=== PATIENT | female | born 1960 | race African-American/Black ===

== ENCOUNTER → 2017-07-02 | Outpatient (CLI) | payer OTHER | LOC: RAD 03:49 | DX: Z12.31 Encounter for screening mammogram for malignant neoplasm of breast (principal) ==

== ENCOUNTER → 2017-07-16 | Outpatient (CLI) | payer OTHER | LOC: RAD 09:50 | DX: M54.5 Low back pain (principal) ==

== ENCOUNTER 2018-09-28 17:57 | Inpatient (IN) | payer OTHER ==
[~2018-09-28] VITALS: Ht 170.2 cm; Wt 80.5 kg
[2018-09-28 18:30] VITALS: BP 151/87
[2018-09-28] MEDS ORDERED: METFORMIN HCL500 MG PO (20:02)
[2018-09-28] MEDS ORDERED: SYNTHROID100 MC1 (20:03)
[2018-09-29 05:00] VITALS: BP 154/70
[2018-09-29 06:20] LABS: CALCIUM 8.7 mg/dL (8.5-10.1); CREATININE 0.7 mg/dL (0.6-1.0); POTASSIUM 3.8 mmol/L (3.5-5.1)
--- NOTE | 2018-09-29 07:48 | NUR ---
PT ALERT AND ORIENTED. ADMITTED INTO ROOM 427 AT AROUND 1800. PT GIVEN PAIN MEDS FOR THE R BIG TOE PAIN. AFEBRILE. ABTS STARTED.NO FURTHER CONCERNS.
[2018-09-29 07:58] VITALS: BP 139/79
--- NOTE | 2018-09-29 13:57 | NUR ---
ASSESSMENT-PT LIVES IN A DUPLEX WITH HER DTR AND GRANDDTR. PT WALKS ON HER OWN AND DOES HER OWN ADLS. SHE HAS NOT HAD ANY HH SERVICES AND USES NO DME. THEY SHARE THE COOKING, CLEANING AND LAUNDRY. PT VOICES NO DC NEEDS AT THIS TIME. FOLLOWING TO ASSIST WITH DC PLANNING.
[2018-09-29 16:18] LABS: ABSOLUTE NEUTROPHILS 5.8 thou/uL (1.4-8.2); BASOPHILS 0.8 % (0.0-2.0); HEMATOCRIT 42.2 % (37.0-47.0); HEMOGLOBIN 14.1 gm/dL (12.0-15.0); LYMPHOCYTES 26.5 % (24.0-44.0); MCH 29.3 pg (26.0-34.0); MCHC 33.4 g/dL (28.0-37.0); MCV 87.5 fL (80.0-100.0); MONOCYTES 8.3 % (1.0-8.0); PLATELET COUNT 288 thou/uL (150-400); POLYS 63.4 % (36.0-66.0); RBC 4.82 mil/uL (4.20-5.00); RDW 14.5 % (10.5-14.5); WBC 9.2 thou/uL (4.0-11.0)
[2018-09-29 17:09] VITALS: BP 130/70
[2018-09-29 19:29] VITALS: BP 141/81
[2018-09-29 23:11] LABS: GLYCOHEMOGLOBIN (HGB A1C) 11.7 % (4.8-5.6)
[2018-09-30 04:31] VITALS: BP 125/60
--- NOTE | 2018-09-30 07:55 | HC ---
[facility] [place] [address] CONSULTATION Name: FRANKLIN GUILLEN Chana Room #: 427-P ADM IN M.R.#: [id number] Admission: 09/28/18 ������������������ Attend Phys: Farhat Fung MD Discharge: ������������������ Date of : 58 Report #: [id number] THIS REPORT FOR: //name// CC: Farhat Fung DATE OF SERVICE: 09/29/2018 HISTORY OF PRESENT ILLNESS: This is a 58-year-old diabetic who was admitted yesterday evening, ThursdaySeptember 28, from our podiatry office with concerns of right big toe cellulitis with ischeic changes and likely osteomyelitis. She states it has been going on for about a month, but over the last week, it has gotten worse. It hurts with any pressure to the toe. She has been applying a topical antibiotic cream. She denies any fever, chills, nausea, or vomiting. She had direct admission for further workup with Infectious Disease consult with IV antibiotics, further vascular studies, and further imaging of right big toe. On physical exam, nonpalpable pedal pulses to right foot, difficult to find pulses with Doppler. CFT is absent to distal aspect of right hallux with signs of ischemia and dusky appearance. The right hallux nail bed with mixture of fibrotic and necrotic tissue present. There is darkened skin to proximal aspect of nail extending back to dorsal mid proximal phalanx aspect. No direct probing to bone, no abscess or fluctuance. No active drainage or pus. No malodor. Edema extends to the base of the right hallux towards first MPJ. There is decrease in sensation to bilateral feet. No obvious gross pedal deformities. No pain in the calf with compression. Significant pain with any pressure to right hallux. ASSESSMENT: A 58-year-old diabetic female with right hallux cellulitis, peripheral vascular disease, + tobacco hx, with dry gangrenous changes, and likely osteomyelitis. PLAN: Direct admission yesterday evening for further workup. At this time, recommend nonadherent dry dressings to right hallux daily. Infectious Disease, Dr. Coleman is on consult. We will await further imaging with MRI and arterial duplex. Recommend rest and elevation, offloading the right hallux. We will order a surgical shoe at the bedside also with weight bearing only to bathroom. [address] [address] CONSULTATION Name: GUILLENFRANKLIN Room #: 427-P ADM IN M.R.#: [id number] Admission: 09/28/18 ������������������ Attend Phys: Farhat Fung MD Discharge: ������������������ Date of : 58 Report #: [id number] Discussed with pt better glucose control and tobacco cessation. Reviewed with her that she could likely need amputation, but unsure at what level she will heal with PVD and pending vasc studies. Also encouraged optimizing nutrition status. Appreciate this consult and we will closely follow. Katarzyna Brandon ��������������������������������������������� <ELECTRONICALLY SIGNED> ���������������������������������������� By: Katarzyna Brandon, PHAN ��������������������������������������������� 09/30/18 0755 0845 1223 Katarzyna Brandon DPM /nt
[2018-09-30 08:09] VITALS: BP 139/74
--- NOTE | 2018-09-30 08:10 | NUR ---
SHIFT SUMMARY:PT IS ALERT AND PLEASANT. AFEBRILE. R FOOT DRSG INTACT. RLE ELEVATED ON A PILLOW.PAIN RELIEF WITH HYDROCODONE.
[2018-09-30 16:17] VITALS: BP 150/88
--- NOTE | 2018-09-30 16:29 | NUR ---
PT TRANSFERRED TO 227 VIA WHEELCHAIR IN STABLE CONDITION. C/O RIGHT FOOT PAIN, PAIN MEDS GIVEN ORDERED. ACHS, INSULIN GIVEN PER SLIDING SCALE. NO OTHER CHANGE IN STATUS.
[2018-09-30 17:50] VITALS: BP 141/90
--- NOTE | 2018-09-30 17:50 | NUR ---
RECEIVED PT FROM . PT ALERT/ORIENTED X4. PAIN IS WELL CONTROLLED. PT UP IN CHAIR. IV ANTIBIOTIC STARTED ORDERED. WILL CONTINUE WITH CURRENT CARE
[2018-09-30 19:58] VITALS: BP 141/106
--- NOTE | 2018-09-30 20:29 | HC ---
[facility] [place] [address] CONSULTATION Name: FRANKLIN GUILLEN Chana Room #: 227-P [facility] IN M.R.#: [id number] Admission: 09/28/18 ������������������ Attend Phys: Farhat Fung MD Discharge: ������������������ Date of : 58 Report #: [id number] THIS REPORT FOR: //name// CC: Farhat Fung DATE OF SERVICE: 09/29/2018 INFECTIOUS DISEASE CONSULTATION: REASON FOR CONSULTATION: I was asked to evaluate concerning right distal toe osteomyelitis. HISTORY OF PRESENT ILLNESS: A 58-year-old diabetic with a 1-month history of increased swelling about her nail with known onychomycosis. She has had persistent pain. She has been treating this topically with antibiotic cream. Denies any fever, chills or sweats. No other toes injured or affected. She reports no specific trauma. She had her nail taken off yesterday by Dr. Vang. Cultures are pending. Initiated Zosyn. Feels better today with less pain while on narcotics. At home, she was treating this with nonsteroidal anti-inflammatories with no relief. Imaging studies showed changes concerning for osteomyelitis of the distal phalanx by MRI scan. Ultrasound of the right lower extremity arterial flow showed obstruction 50% or greater in the distal common femoral artery. Blood sugar control here has been poor with sugars in the 200-300 range. Normally, she stays below 200 at home. ALLERGIES: None. MEDICATIONS: Metformin and Synthroid. PAST MEDICAL HISTORY: Diabetes, hypothyroidism, . FAMILY HISTORY: Noncontributory. SOCIAL HISTORY: She is a smoker of cigarettes. No significant alcohol intake. Works secretarial job. No consistent exercise. REVIEW OF SYSTEMS: Denies any cough, sputum, nausea, vomiting, diarrhea, dysuria or frequency. A 10-point review was negative other than what has been described above. PHYSICAL EXAMINATION: VITAL SIGNS: Afebrile, hemodynamically stable. GENERAL: Alert and cooperative, in no acute distress. Appeared her stated age. EYES: Without scleral icterus. MOUTH: Without mucositis. NECK: Supple, with no thyromegaly or mass. [facility] [address] [place] [address] CONSULTATION Name: FRANKLIN GUILLEN Chana Room #: 227-P [facility] IN .R.#: [id number] Admission: 09/28/18 ������������������ Attend Phys: Farhat Fung MD Discharge: ������������������ Date of : 58 Report #: [id number] SKIN: Without rash or decubitus. No palpable adenopathy. CHEST: Clear. HEART: Regular, without murmur. ABDOMEN: Soft, nontender, no hepatosplenomegaly or mass. EXTREMITIES: The right great toe nail was removed. There was exposed bone. There was 1+ swelling. She had a dusky color to the toe. It was exquisitely tender to palpation. Could not express any purulence. Sensation was diminished in the toe. Had reasonable sensation to touch throughout. Decreased pulses in the dorsalis pedis with palpable posterior tibial. Cranial nerves intact. NEUROLOGIC: Otherwise unremarkable. Strength was normal and sensation was normal in the upper extremities. Mood normal. LABORATORY STUDIES: Creatinine 0.7. Cultures are pending. MRI scan and ultrasound as noted. IMPRESSION: 1. A 58-year-old with right distal toe osteomyelitis. Organisms yet to be identified. 2. Diabetes. 3. Peripheral vascular disease with greater than 50% obstruction of the right superficial femoral artery. RECOMMENDATION: We will continue with Zosyn, pending culture results. Would have Interventional Radiology evaluate right superficial femoral artery obstruction. Check CBC, sedimentation rate, CRP. Would expect she will require further debridement likely distal toe amputation. ��������������������������������������������� <ELECTRONICALLY SIGNED> ���������������������������������������� By: Kana Coleman MD ��������������������������������������������� 09/30/18 2029 1541 0307 Kana Coleman MD /nt
[2018-10-01] VITALS (10 sets, daily range): BP systolic 110–142; BP diastolic 62–83
--- NOTE | 2018-10-01 05:07 | NUR ---
PATIENT ALERT AND ORIENTED X4. HAS BEEN NPO SINCE [place] FOR A PROCEDURE THIS AM. DRESSING ON L FT INTACT. ACCUCHECK WAS 212, RECEIVED 4 UNITS SS LISPRO INSULIN. C/O PAIN X1, MED GIVEN WITH GOOD RELIEF. SLEPT MOST OF NIGHT.
[2018-10-01 06:36] LABS: CALCIUM 9.3 mg/dL (8.5-10.1); CREATININE 0.8 mg/dL (0.6-1.0); POTASSIUM 3.7 mmol/L (3.5-5.1)
--- NOTE | 2018-10-01 08:27 | NUR ---
ASSUMED PT CARE AT 0700. ASSESSMENT COMPLETED AND IS CHARTED. VITAL SIGNS STABLE. WOUND TO RIGHT GREAT TOE IS DRESSED, CDI. NO DRAINAGE NOTED. PT REPORTS VERY LITTLE PAIN SHE RATES 2/10. DENIES NEED FOR PAIN MEDICATION. PT IS UP AD VINCE WITH ORTHO SHOE AND DOES WELL WITH THAT. PT NPO SINCE MIDNIGHT FOR ARTERIOGRAM THIS MORNING. OTHERWISE WILL CONTINUE WITH CURRENT CARE.
--- NOTE | 2018-10-01 10:07 | NUR ---
PT TO IR FOR ARTERIOGRAM.
--- NOTE | 2018-10-01 12:15 | NUR ---
SW reviewed chart and spoke with nursing. Pt was transferred to [facility] from . Pt had arteriogram in IR of RLE. Pt may possibly need amputation. Pt is currently on IV abx: zosyn. SW is following to assist as needed with discharge planning.
--- NOTE | 2018-10-01 14:56 | NUR ---
1440-PT RESTING COMFORTABLY, VSS, LEFT GROIN FISH SHEATH IN PLACE, NO HEMATOMA NOTED AND DRESSING C/D/I. STERILE TECHNIQUE PERFORMED AND FISH SHEATH REMOVED W/O ANY DIFFICULTY, VSS THROUGHOUT HOLD, NO HEMATOMA NOTED AT ANYTIME. REVIEWED POST GROIN INSTRUCTIONS WITH PT AND ALL QUESTIONS ANSWERED. STERILE DRESSING PLACED OVER LEFT GROIN AFTER PRESSURE MAINTAINED FOR 10 MINUTES. VSS, REPORT CALLED TO [facility] AND PT TRANSFERRED BACK IN BED.
--- NOTE | 2018-10-01 16:47 | NUR ---
RECEIVED PT BACK FROM IR AT 1600. DRESSING TO LEFT GROIN IS CDI. 1+ PEDAL PULSE STRENGTH. VITAL SIGNS STABLE. PT IS AWAKE, ALERT/ORIENTED X4. IV FLUIDS STARTED AND ANTIBIOTIC BEGAN. HOB AT 30 DEGREES. PT WAS INSRUCTED TO REMAIN FLAT WITH LEG STRAIGHT.
[2018-10-02 02:00] VITALS: BP 102/58
--- NOTE | 2018-10-02 03:57 | NUR ---
ASSESSMENT: PT REMAIN ALERT AND ORIENT TIMES FOUR. UP AD VINCE, DENIES DIZZINESS POST ARTERIAL GRAM SURGERY. BS WAS 311 AT 2100, PT RECEIVED 9 UNITS OF LISPRO. LATER DURING THE NIGHT THE PT FELT THAT HER BS HAD DROPPED. BS WAS TAKEN AND IT WAS 87. HS SNACKS WERE GIVEN. PRN PAIN MEDICATION WAS GIVEN FOR PAIN SCORED 3/10. PT SLEPT MOST OF THE NIGHT. PT DID URINATE ADEQUATE AMTS POST PROCEDURE. SLOW PROGRESS, WILL CONTINUE TO MONITOR.
[2018-10-02 05:48] LABS: HEMATOCRIT 39.5 % (37.0-47.0); HEMOGLOBIN 13.2 gm/dL (12.0-15.0); MCH 28.9 pg (26.0-34.0); MCHC 33.4 g/dL (28.0-37.0); MCV 86.7 fL (80.0-100.0); RBC 4.55 mil/uL (4.20-5.00); RDW 14.3 % (10.5-14.5); WBC 9.4 thou/uL (4.0-11.0)
[2018-10-02 05:50] LABS: CALCIUM 9.2 mg/dL (8.5-10.1); CREATININE 0.7 mg/dL (0.6-1.0); POTASSIUM 3.9 mmol/L (3.5-5.1)
--- NOTE | 2018-10-02 08:13 | NUR ---
PT IS A&0X4, GROIN SITE NO EDEMA NOR REDNESS, FAINT MINISCULE SPOT OF BLOOD FROM PRIOR BLEEDING, AMB INDEPENDENTLY AND STEADY, WHEN ASKED CONCERN OR GOAL SHE MENTIONED SHE DIDN'T GET HER NIGHT ABX HUNG. SHOWED HER THE BAG ON IV POLE, SHE SAID THAT WASNT THE ONE. MENTIONED CONCERN OVER FEELING BG'S ARE VACILLATING AND WANTS US TO CHECK HER PROMPTLY WHEN SHE FEELS HER BGS ARE DROPPING, ENCOURAGED HER TO USE CALL LIGHT FOR ANY NEEDS, DENIES PAIN AT THIS TIME.
--- NOTE | 2018-10-02 08:40 | NUR ---
PT IS A&04, STEADY GAIT, HTN OVER LAST SEV DAYS OF 180 AND 180 SBP, PT STATES IT'S BECAUSE SHE USUALLY TAKES HTN MEDS AT 0400, HASN'T SLEPT UNTIL LAST NIGHT, AND HAS BEEN IN PAIN. POSSIBLE D/C TODAY, ADVENTITIOUS LUNG SOUNDS LEFT LL LOBE, ENCOURAGED W/DEEP SLOW BREATHING. WILL GIVE HER MEDS FIRST. WAS TX FOR HER PAIN THAT IS MOSTLY MID BACK PRIOR TO MY SHIFT WITH GOOD EFFECT. ENCOURAGED HER TO USE CALL LIGHT FOR ANY NEEDS
[2018-10-02 20:15] VITALS: BP 120/68
--- NOTE | 2018-10-03 04:52 | NUR ---
Assumed pt. care at 1900. Pt. remains A&Ox4; Swallows meds whole w/o difficulty. Remains cont. B&B; Ambulates independently w/ steady gait. Blood sugars WNL. Remains on IVABT/osteomyelitis to R great toe. SL noted to R wrist; infused ABT/flushed w/ NS w/o difficulty. DRSG to R foot remains C/D/I, at this time. Last BM 10/02/18, per pt. Pt. has no c/o pain or discomfort. No s/s of acute distress noted. Po fluids enocuraged. Will continue to monitor.
[2018-10-03 07:45] VITALS: BP 142/84
--- NOTE | 2018-10-03 18:10 | NUR ---
ASSUMED PATIENT AND CARES AT 0715, PATIENT SITTING UP ON SIDE OF BED, A&OX4, DENIES PAIN OR DISCOMFORT, RIGHT FOREARM SALINE LOCK INTACT, DRESSING TO RIGHT FOOT C/D/I, ORTHO SHOE AT BEDSIDE, PATIENT UP AD VINCE, PERSONAL BELONGINGS AND CALL LIGHT IN REACH, WILL CONTINUE TO MONITOR
[2018-10-03 21:09] VITALS: BP 138/87
--- NOTE | 2018-10-04 05:17 | NUR ---
Assumed pt. care at 1900. Remains A&Ox4; Swallows meds whole w/o difficulty. Remains cont. B&B; ambulates independently to bathroom; gait steady. Blood sugars WNL. Remains on IVABT/cellulitis to RLE; no adverse reactions noted. SL noted to R hand; infused ABT/fluids/flushed w/o difficulty. DRSG C/D/I to RLE and L groin. Last BM 10/03/18, per pt. Patient has no c/o pain or discomfort. No s/s of acute distress noted. Patient asleep in bed w/ call light/desired belongings within reach. Po fluids enocuraged. Will continue to monitor.
--- NOTE | 2018-10-04 06:48 | NUR ---
PATIENTS NOTES,DOCUMENTATION AND ASSESSMENT HAS BEEN READ AND AGREE PER RN
[2018-10-04 08:22] VITALS: BP 143/92
[2018-10-04] MEDS ORDERED: DIFLUCAN200 MG PO (13:28)
--- NOTE | 2018-10-04 14:22 | NUR ---
Received order to arrange home IVAB. Spoke with pt. She is agreeable and has family member who will be able to assist her. Pt has not had home health in the past or home IVAB. Called [facility] and they will run benefits.
[2018-10-04 19:30] VITALS: BP 143/80
--- NOTE | 2018-10-04 19:41 | NUR ---
ASSUMED CARE OF PATIENT AT 0715, PATIENT ALERT AND ORIENTED X 4. PAIENT UP AD VINCE IN HER ROOM. PATIENT C/O MILD PAIN 2/10 WITH RIGHT FOOT/GREAT TOE, REFUSED PAIN MEDS AT THIS TIME. BLOOD SUGAR MONITORING ORDERED, INSULIN GIVEN PER S/S. PATIENT DID RECEIVE HYDROCODONE 1 TABLET THIS SHIFT. PATIENT HAS RIGHT FOREARM IV IN PLACE, PATIENT RECEIVED 1 IV ANTIBIOTIC THIS SHIFT. PATIENT HAS DRESSING TO RIGHT FOOT AND LEFT GROIN AREA C/D/I. ORDER RECEIVED FOR PICC LINE, PATIENT WILL HAVE HOME INFUSION ANTIBIOTICS. PICC LINE NOT PLACED TODAY, IV TEAM WILL DO TOMORROW, SINCE PATIENT NOT DISCHARGING TODAY. INFUSION NURSE HERE THIS AFTERNOON TO GIVE INFO ON HOME INFUSIONS. PATIENT GOT UPSET WITH EVERYTHING GOING ON, BUT SHE CALMED DOWN. WILL CONTINUE TO MONITOR.
--- NOTE | 2018-10-05 03:18 | NUR ---
Pt A/OX4.VSS.C/o pain to right foot LOP 3/10 medicated with [place] with some relief reported. Verbalizes it hurts especially when she wears the orthopedic shoe,however shoe is not tight. Up ad kayden without problems. Call light/personal items within reach. Will continue to monitor pt.
[2018-10-05 08:15] VITALS: BP 129/57
[2018-10-05 09:16] VITALS: BP 129/57
--- NOTE | 2018-10-05 16:41 | NUR ---
CM HAD CONTACT OP [facility] THIS AM AND THEY INDICATED THAT PT COULD COME HERE ONCE A WEEK AND HAVE THE DRESSING ON HER PIC LINE CHANGED UPON DC THEY JUST NEEDED ORDER. CM NOTIFIED DR. ROBISON. HE VISITED PT THIS AFTERNOON AND HE INDICATED THAT SHE MAY NOW BE CONTEMPLATING AMPUTATION RATHER THEN DISCHARGING. CM FOLLOWING REGARDING PLAN.
[2018-10-05] MEDS ORDERED: CEFDINIR300 MG PO (17:18)
[2018-10-05 18:24] VITALS: BP 147/86
--- NOTE | 2018-10-05 19:43 | NUR ---
ASSUMED CARE OF PATIENT AT 0715, PATIENT ALERT AND ORIENTED X 4. PATIENT UP AD VINCE. PATIENT HAS RIGHT GREAT TOE I&D, DRESSING CHANGED THIS SHIFT. PATIENT DIDN'T GET PICC LINE, SHE HAS DECIDED TO GET AMPUTATION. PATIENT HAS BEEN TEARFUL ALL DAY. DR ROBISON HERE TODAY, AND OK WITH PATIENT GETTING AMPUTATION. DR MARION HERE AND EXPLAINED TO PATIENT HER CHOICES AND HE IS OK WITH HER DECISIONS. PATIENT HAS RIGHT FOREARM IV IN PLACE, RECEIVING IV ANTIBIOTICS. PATIENT RECEIVED A SHOWER TODAY AND SHE FELT BETTER. WILL CONTINUE TO MONITOR.
--- NOTE | 2018-10-06 05:00 | NUR ---
Pt A/OX4.Up ad kayden in room,wears an orthopedic shoe on right foot. C/o pain to right foot / medicated with [place] with relief reported. Dressing C/D/I right foot,non pitting edema on RLE and pt has foot elevated on a pillow. PIV patent and saline locked on RFA. Pt calls as needed. Resting quietly with eyes closed no distress noted will continue to monitor pt.
--- NOTE | 2018-10-06 10:19 | NUR ---
Assess due to length of stay. Admit with toe osteomyelitis-pt has decided to proceed with amputation (unsure if this admit or go home then readmit). Hx diabetes, A1C 11.7 poorly controlled-likely related to infection and pt states not always compliant with diet. Denied need for diet education at this time, stating has been educated before. Appeared very anxious regaring work disability, surgery, etc...forwarded concerns to nurse. Eating adequately reviewed how to order from menu to receive food preferences. Low nutrition risk.
--- NOTE | 2018-10-06 13:38 | NUR ---
PATIENT CARE WAS ASSUMED AT 0715.PATIENT IS ALERT AND ORIENTED X4.PATIENT IS ABLE TO AMBULATE WITH ORTHO BOOT IN PLACE.PATIENT HAS IV INTACT AND SALINE LOCKED.PT HAS NO COMPLAINS OF PAIN AT THIS TIME.PT HAS CONCERNS ON WHETHER SHE WILL HAVE SURGERY TODAY OR OUTPATIENT.CALL LIGHT,PHONE, AND PERSONAL BELONGINGS ARE WITHIN PLACE.NURSE WILL FOLLOW UP PATIENT'S SURERY CARE PLAN WITH DOCTOR.
[2018-10-06 13:42] VITALS: BP 147/86
--- NOTE | 2018-10-06 14:46 | NUR ---
PATIENT WAS DISCHARGED TO GO HOME WITH SELF CARE.IV WAS REMOVED.MEDICATIONS SCRIPTS WERE CALLED IN THE [facility] BY NURSE.PATIENT WAS DISCHARGED IN STABLE CONDITION.PATIENT DROVE TO HOSPITAL AND WILL BE DRIVING HERSELF.WINDOWS SYSTEMS ADMINISTRATOR TOOK PATIENT TO CAR.PATIENT HAS ALL OF HER PAPERWORK AND PERSONAL BELONGINGS.
[2018-10-07] MEDS ORDERED: SYNTHROID150 MCG PO (15:39)
[2018-10-07] MEDS ORDERED: DIFLUCAN200 MG PO (15:41)
[2018-10-07] MEDS ORDERED: CEFDINIR300 MG PO (15:41)
== END 2018-10-06 14:53 | disposition home or self-care (01) | DRG 271 ==
LOC: 4E 17:57 → SICU 09-30 16:16
PROVIDERS: Nuclear Medicine Nuclear Cardiology; Nurse Practitioner; Specialist; ADMIT Family Medicine
PROC: 04CK3ZZ Extirpation of Matter from Right Femoral Artery, Percutaneous Approach (ICD-10-PCS; principal; 2018-10-01)
PROC: 047D3DZ Dilation of Left Common Iliac Artery with Intraluminal Device, Percutaneous Approach (ICD-10-PCS; principal; 2018-10-01)
PROC: B4181ZZ Fluoroscopy of Bilateral Renal Arteries using Low Osmolar Contrast (ICD-10-PCS; principal; 2018-10-01)
PROC: 047K3D1 Dilation of Right Femoral Artery with Intraluminal Device, using Drug-Coated Balloon, Percutaneous Approach (ICD-10-PCS; principal; 2018-10-01)
PROC: 047C3DZ Dilation of Right Common Iliac Artery with Intraluminal Device, Percutaneous Approach (ICD-10-PCS; principal; 2018-10-01)
PROC: B4101ZZ Fluoroscopy of Abdominal Aorta using Low Osmolar Contrast (ICD-10-PCS; 2018-10-01)
DX: E11.52 Type 2 diabetes mellitus with diabetic peripheral angiopathy with gangrene (principal); M86.8X7 Other osteomyelitis, ankle and foot; I96 Gangrene, not elsewhere classified; E11.69 Type 2 diabetes mellitus with other specified complication; L03.031 Cellulitis of right toe; E03.9 Hypothyroidism, unspecified; F17.210 Nicotine dependence, cigarettes, uncomplicated; I77.1 Stricture of artery; I10 Essential (primary) hypertension; Z83.3 Family history of diabetes mellitus; Z82.49 Family history of ischemic heart disease and other diseases of the circulatory system; Z79.899 Other long term (current) drug therapy
CPT/HCPCS: 10783; 15002

== ENCOUNTER 2018-10-13 05:42 | Day surgery (SDC) | payer OTHER ==
[~2018-10-13] VITALS: Ht 170.2 cm; Wt 82.1 kg
[~2018-10-13 05:42] MED LIST: CEFDINIR300 MG PO; DIFLUCAN200 MG PO; METFORMIN HCL500 MG PO; SYNTHROID100 MC1; SYNTHROID150 MCG PO
[2018-10-13 08:41] VITALS: BP 113/67
--- NOTE | 2018-10-13 08:55 | EKG ---
[address] [address] ELECTROCARDIOGRAM REPORT Name: FRANKLIN GUILLEN Room #: 150-6 [facility].#: [id number] ������������������ Admission: 10/13/18 ������������������ Attend Phys: Katarzyna Brandon, Discharge: ������������������ Date of : 58 Report #: [id number] ����������������������������������������������������������������� [id number] THIS REPORT FOR: //name// [facility] Test Date: 2018-10-13 Test Time: 08:35:54 Pat Name: FRANKLIN GUILLEN Department: Room: 150 6 Gender: F Supervisor Graphite: YOANNA : 1960 Requested By: Katarzyna Brandon Order Number: [id number] MD: Mario Wade Measurements Intervals [place] Rate: 60 P: 45 NM: 119 QRS: 7 QRSD: 91 T: 35 QT: 410 QTc: 410 Interpretive Statements Sinus rhythm Borderline short NM interval No previous ECG available for comparison Electronically Signed On 10-13-2018 8:55:21 CDT by Mario Wade [email or web address] ��������������������������������������������� <ELECTRONICALLY SIGNED> ���������������������������������������� By: Mario Wade MD ��������������������������������������������� 10/13/18 0855 0835 4 Mario Wade MD /ALVAREZ
[2018-10-13 10:12] VITALS: BP 113/67
--- NOTE | 2018-10-14 14:06 | PATH ---
[facility] [address] [place] [address] PATHOLOGY RPT PROCEDURE Name: ZENAIDA VARELA Room #: DEP [place] M.R.#: [id number] ������������������ Admission: 10/13/18 ������������������ Date of : 58 Discharge: 10/13/18 Report #: [id number] Path Case #: [id number] [facility] Accession Number: [id number] . 01 Material submitted: . PART A: DISTAL PHLAYNX RIGHT GREAT TOE PART B: CLEAR MARGIN PROXIMAL PHALANYX RIGHT . 01 Clinical history: . Osteomyelitis, right foot . 02 Diagnosis: A. Toe, right great toe distal phalanx, excision: - Ulceration and gangrenous necrosis associated with marked acute inflammation extending into underlying subcutaneous tissue as well as bone. - Bone associated with marked acute and chronic osteomyelitis. - Skin margin viable. . B. Bone, clear margin proximal phalanx right, excision: - Viable and unremarkable bone present. . (IUV:maxwell; 10/14/2018) MBGold/10/14/2018 . 02 Electronically signed: . Josepihne Ruvalcaba MD, Pathologist NPI- [id number] . 01 Gross description: . A. The specimen is received in formalin, labeled "Zenaida Varela, distal phalanx-right great toe", is a distal portion of digit measuring 3.2 cm from the proximal skin resection margin to distal tip and up to 3.0 cm in width. The skin, underlying soft tissue and bone margin (morales-white concave articular cartilage) appear viable. On the dorsal aspect involving the nail, there is a morales-white necrotic, friable lesion lesion measuring 2.0 x 2.0 cm that is 0.7 cm from the proximal skin and approximately 0.4 cm from the proximal bone margin. a longitudinal section of the specimen reveals the necrotic lesion abutting the underlying bone. Ecological Economist tissue is submitted as follows: A1-A2. Longitudinal section of digit, bisected after decalcification (green ink at intersection and A1 = proximal margins to mid and A2 = mid to distal tip) . B. The specimen is received in formalin, labeled "Zenaida Varela, clean margin, proximal phalanx-right", is a segment of bolden-brown bone measuring 1.6 x 0.8 x 0.7 cm. One surface displays [place] [address] PATHOLOGY RPT PROCEDURE Name: ZENAIDA VARELA A Room #: DEP [place] Ramez#: [id number] ������������������ Admission: 10/13/18 ������������������ Date of : 58 Discharge: 10/13/18 Report #: [id number] Path Case #: [id number] articular cartilage with the opposite smooth, consisting of bolden-brown trabeculated bone. The specimen is bisected and entirely submitted in B1 after decalcification. (SWS; 10/13/2018) SHS/SHS . 02 Pathologist provided ICD-10: M86.171, M86.172 . 02 CPT . 050283, [id number], [id number], [id number] Specimen Comment: A courtesy copy of this report has been sent to Specimen Comment: [phone], . Specimen Comment: Report sent to / DR ROBISON Performed at: [address], [place] [id number] MD Melecio Arteaga MD Phone: [phone] Performed at: [address] [id number] MD Josephine Ruvalcaba MD Phone: [phone]
== END 2018-10-13 10:48 | disposition home or self-care (01) ==
LOC: OR 05:42 → TBA 05:42 → OR 10:48
DX: M86.171 Other acute osteomyelitis, right ankle and foot (principal); Z87.891 Personal history of nicotine dependence; E11.9 Type 2 diabetes mellitus without complications; E03.9 Hypothyroidism, unspecified
CPT/HCPCS: 50010; 50101; 50386; 50951; 56525; 56805; 57091; 57178; 62110; 62850; 70005

== ENCOUNTER 2018-11-15 12:24 | Outpatient (CLI) | payer OTHER ==
[~2018-11-15] VITALS: Ht 170.2 cm; Wt 85.3 kg
[2018-11-15 12:55] VITALS: BP 144/89
[2018-11-15 13:00] LABS: HEMATOCRIT 40.5 % (37.0-47.0); HEMOGLOBIN 13.8 gm/dL (12.0-15.0); MCH 30.1 pg (26.0-34.0); MCV 88.5 fL (80.0-100.0); RBC 4.57 mil/uL (4.20-5.00); RDW 15.6 % (10.5-14.5); WBC 8.5 thou/uL (4.0-11.0)
[2018-11-15] MEDS ORDERED: ASPIR 8181 MG PO (13:15)
[2018-11-15 13:16] LABS: CALCIUM 9.2 mg/dL (8.5-10.1); CREATININE 0.8 mg/dL (0.6-1.0); POTASSIUM 3.6 mmol/L (3.5-5.1)
[2018-11-15] MEDS ORDERED: LIPITOR 20 MG T20 M1 PO (13:16)
[2018-11-15] MEDS ORDERED: PLAVIX 75 MG TA75 M1 PO (13:16)
[2018-11-15 19:38] VITALS: BP 140/76
[2018-11-15 23:05] VITALS: BP 152/79
[2018-11-15 23:07] VITALS: BP 125/69
--- NOTE | 2018-11-16 03:29 | NUR ---
PT HERE FOR OBSERVATION AFTER IR/ANGIO OF LEFT LEG. ALERT AND ORIENTED. VITALS STABLE. MINIMAL DRAINAGE AT THE RIGHT GROIN ACCESS SITE. C/O SORENESS WILL PALPATION. ALLEVIATED WITH HYDOCODONE. CALLED DR ROBISON FOR BLOOD GLUCOSE ORDER MANAGEMENT. CALL DR. VASQUES FOR ADMISSION ORDER BUT DECLINED TO CHANGE PT STATUS STATING, "PT CAN BE OBSERVATIONAL FOR 23 HRS. SINUS RHYTHM ON THE MONITOR, STAND BY WITH AMBULATION. WILL CONTINUE TO FOLLOW POC.
[2018-11-16 03:47] LABS: CALCIUM 8.4 mg/dL (8.5-10.1); CREATININE 0.6 mg/dL (0.6-1.0); POTASSIUM 3.6 mmol/L (3.5-5.1)
[2018-11-16 04:00] VITALS: BP 126/70
[2018-11-16 04:59] LABS: HEMATOCRIT 34.7 % (37.0-47.0); MCHC 33.6 g/dL (28.0-37.0); MCV 89.4 fL (80.0-100.0); RBC 3.88 mil/uL (4.20-5.00); RDW 15.3 % (10.5-14.5); WBC 9.2 thou/uL (4.0-11.0)
[2018-11-16 05:05] LABS: HEMOGLOBIN 11.7 gm/dL (12.0-15.0)
[2018-11-16 08:34] VITALS: BP 127/70
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
== END 2018-11-16 10:15 | disposition home or self-care (01) ==
LOC: SPEC 12:24 → 2N 16:32 → ENTRNSPT 11-16 09:59 → EDTRNSPTSTS 11-16 10:02 → SPEC 11-16 10:15
PROVIDERS: Nuclear Medicine Nuclear Cardiology; Nurse Practitioner Gerontology
DX: I70.212 Atherosclerosis of native arteries of extremities with intermittent claudication, left leg (principal); E11.9 Type 2 diabetes mellitus without complications; E03.9 Hypothyroidism, unspecified; E78.5 Hyperlipidemia, unspecified; Z98.890 Other specified postprocedural states; Z87.891 Personal history of nicotine dependence; Z79.899 Other long term (current) drug therapy
CPT/HCPCS: 10081

== ENCOUNTER → 2019-07-05 | Outpatient (CLI) | payer OTHER ==
[~2019-07-05] MED LIST changes: +ASPIR 8181 MG PO; +LIPITOR 20 MG T20 M1 PO; +PLAVIX 75 MG TA75 M1 PO
== END ==
LOC: ULTRA 09:19
DX: K80.20 Calculus of gallbladder without cholecystitis without obstruction (principal); K21.9 Gastro-esophageal reflux disease without esophagitis

== ENCOUNTER → 2019-08-29 | Outpatient (CLI) | payer OTHER | LOC: MRI 07-29 00:36 | DX: K80.20 Calculus of gallbladder without cholecystitis without obstruction (principal) ==

== ENCOUNTER → 2021-08-27 | Outpatient (CLI) | payer BC | LOC: RAD 10:15 | PROVIDERS: ATTEND Contractor | DX: L97.411 Non-pressure chronic ulcer of right heel and midfoot limited to breakdown of skin (principal); E08.621 Diabetes mellitus due to underlying condition with foot ulcer; R22.41 Localized swelling, mass and lump, right lower limb ==